=== PATIENT | male | born 1970 | race Caucasian/White ===

== ENCOUNTER 2018-02-13 13:01 | Inpatient (IN) | payer OTHER ==
[~2018-02-13] VITALS: Ht 190.5 cm; Wt 96.0 kg
[2018-02-13 14:03] LABS: BASOPHILS ABSOLUTE AUTO 0.04 K/mm3 (0.00-0.23); BASOPHILS PERCENT AUTO 0 % (0-2); EOSINOPHILS ABSOLUTE AUTO 0.02 K/mm3 (0.00-0.68); EOSINOPHILS PERCENT AUTO 0 % (0-6); Hematocrit 49.1 % (37.0-53.0); Hemoglobin 16.4 g/dL (13.5-17.5); IMMATURE GRAN ABSOLUTE AUTO 0.07 K/mm3 (0.00-0.10); IMMATURE GRAN PERCENT AUTO 1 % (0-1); LYMPHOCYTES ABSOLUTE AUTO 0.63 K/mm3 (0.84-5.20); LYMPHOCYTES PERCENT AUTO 4 % (21-46); MONOCYTES ABSOLUTE AUTO 0.95 K/mm3 (0.16-1.47); MONOCYTES PERCENT AUTO 6 % (4-13); Mean Corpuscular HGB 29.6 pg (26.0-34.0); Mean Corpuscular HGB Conc 33.4 g/dL (31.5-36.5); Mean Corpuscular Volume 89 fL (80-100); Mean Platelet Volume 9.8 fL (9.1-12.4); NEUTROPHILS ABSOLUTE AUTO 13.04 K/mm3 (1.96-9.15); NEUTROPHILS PERCENT AUTO 88 % (41-73); Platelet Count 358 K/mm3 (150-400); RDW Standard Deviation 42.5 fL (35.1-46.3); Red Blood Cell Count 5.54 M/mm3 (4.30-5.90); White Blood Cell Count 14.75 K/mm3 (4.00-11.30)
[2018-02-13 14:18] LABS: Source, Urine Clean Catch
[2018-02-13 14:22] LABS: Alanine Aminotransfer (ALT/SGP 19 U/L (12-78); Albumin, Blood 3.8 g/dL (3.4-5.0); Albumin/Globulin Ratio 0.9 (0.8-1.8); Alk Phos 68 U/L (50-136); Anion Gap 10 mmol/L (6-16); Aspartate Aminotrans (AST/SGOT 15 U/L (12-37); Bilirubin, Total 0.6 mg/dL (0.1-1.0); Blood Urea Nitrogen 9 mg/dL (8-24); Bun/Creatinine Ratio 10.2 (12.0-20.0); CO2, Blood 25 mmol/L (21-32); Calcium, Blood 8.9 mg/dL (8.5-10.1); Chloride, Blood 105 mmol/L (98-108); Creatinine, Blood 0.88 mg/dL (0.60-1.20); Globulin, Blood 4.2 g/dL (2.2-4.0); Glomerular Filtration Rate >60 (60-); Glucose, Blood 116 mg/dL (70-99); Potassium, Blood 3.7 mmol/L (3.5-5.5); Sodium, Blood 140 mmol/L (136-145)
[2018-02-13 14:32] LABS: Appearance, Urine Clear (Clear); Bilirubin, Urine Neg (Neg); Blood, Urine 5+ (Neg); Color, Urine Yellow (P-Yellow); Glucose Qualitative, Urine Neg (Neg); Ketones, Urine 1+ (Neg); Leukocyte Esterase, Urine 1+ (Neg); Nitrite, Urine Neg (Neg); Protein, Urine 1+ (Neg); Specific Gravity, Urine 1.025 (1.003-1.022); Urobilinogen, Urine NORM (Normal)
[2018-02-13 15:06] LABS: Bacteria Few /hpf; Mucus Mod (0-Heavy); Squamous Epithelial Cells Rare /hpf (Few); White Blood Cells, Urine Not Seen /hpf (0-5)
[2018-02-14 03:30] LABS: Adenovirus F 40/41 Not Detected (NOT DETECT); Astrovirus Not Detected (NOT DETECT); Cryptosporidium Not Detected (NOT DETECT); Cyclospora Cayetanensis Not Detected (NOT DETECT); E. Coli O157 Not Detected (NOT DETECT); Entamoeba Histolytica Not Detected (NOT DETECT); Enteroaggregative E. coli-EAEC Not Detected (NOT DETECT); Enteropathogenic E. coli-EPEC Not Detected (NOT DETECT); Enterotoxigenic E. coli-ETEC Not Detected (NOT DETECT); Giardia Lamblia Not Detected (NOT DETECT); Norovirus GI/GII Not Detected (NOT DETECT); Plesiomonas Shigelloides Not Detected (NOT DETECT); Rotavirus A Not Detected (NOT DETECT); Salmonella Sp Not Detected (NOT DETECT); Sapovirus Not Detected (NOT DETECT); Shiga Toxin-prod E. coli-STEC Not Detected (NOT DETECT); Shigella/Enteroin E. coli-EIEC Not Detected (NOT DETECT); Vibrio Cholerae Not Detected (NOT DETECT); Vibrio Sp Not Detected (NOT DETECT); Yersinia Enterocolitica Not Detected (NOT DETECT)
[2018-02-14 04:52] LABS: Campylobacter Sp Detected (NOT DETECT)
[2018-02-14 05:37] LABS: Hemoglobin 14.3 g/dL (13.5-17.5); Mean Corpuscular HGB Conc 33.3 g/dL (31.5-36.5); Mean Corpuscular Volume 90 fL (80-100); Mean Platelet Volume 9.8 fL (9.1-12.4); Platelet Count 262 K/mm3 (150-400); RDW Standard Deviation 42.8 fL (35.1-46.3); Red Blood Cell Count 4.77 M/mm3 (4.30-5.90); White Blood Cell Count 11.35 K/mm3 (4.00-11.30)
[2018-02-14 05:59] LABS: Anion Gap 9 mmol/L (6-16); Blood Urea Nitrogen 6 mg/dL (8-24); Bun/Creatinine Ratio 6.9 (12.0-20.0); CO2, Blood 24 mmol/L (21-32); Calcium, Blood 8.4 mg/dL (8.5-10.1); Chloride, Blood 105 mmol/L (98-108); Creatinine, Blood 0.87 mg/dL (0.60-1.20); Glomerular Filtration Rate >60 (60-); Glucose, Blood 131 mg/dL (70-99); Potassium, Blood 3.5 mmol/L (3.5-5.5); Sodium, Blood 138 mmol/L (136-145)
[2018-02-15 05:41] LABS: BASOPHILS ABSOLUTE AUTO 0.02 K/mm3 (0.00-0.23); BASOPHILS PERCENT AUTO 0 % (0-2); EOSINOPHILS ABSOLUTE AUTO 0.19 K/mm3 (0.00-0.68); EOSINOPHILS PERCENT AUTO 3 % (0-6); Hematocrit 43.1 % (37.0-53.0); Hemoglobin 14.4 g/dL (13.5-17.5); IMMATURE GRAN ABSOLUTE AUTO 0.02 K/mm3 (0.00-0.10); IMMATURE GRAN PERCENT AUTO 0 % (0-1); LYMPHOCYTES ABSOLUTE AUTO 1.15 K/mm3 (0.84-5.20); LYMPHOCYTES PERCENT AUTO 17 % (21-46); MONOCYTES ABSOLUTE AUTO 0.94 K/mm3 (0.16-1.47); MONOCYTES PERCENT AUTO 14 % (4-13); Mean Corpuscular HGB 30.1 pg (26.0-34.0); Mean Corpuscular HGB Conc 33.4 g/dL (31.5-36.5); Mean Corpuscular Volume 90 fL (80-100); Mean Platelet Volume 9.9 fL (9.1-12.4); NEUTROPHILS ABSOLUTE AUTO 4.42 K/mm3 (1.96-9.15); NEUTROPHILS PERCENT AUTO 66 % (41-73); Platelet Count 259 K/mm3 (150-400); RDW Standard Deviation 42.8 fL (35.1-46.3); Red Blood Cell Count 4.78 M/mm3 (4.30-5.90); White Blood Cell Count 6.74 K/mm3 (4.00-11.30)
[2018-02-15 05:56] LABS: Anion Gap 7 mmol/L (6-16); Blood Urea Nitrogen 4 mg/dL (8-24); CO2, Blood 28 mmol/L (21-32); Calcium, Blood 8.5 mg/dL (8.5-10.1); Chloride, Blood 106 mmol/L (98-108); Creatinine, Blood 0.79 mg/dL (0.60-1.20); Glomerular Filtration Rate >60 (60-); Glucose, Blood 100 mg/dL (70-99); Potassium, Blood 3.8 mmol/L (3.5-5.5); Sodium, Blood 141 mmol/L (136-145)
[2018-02-15] MEDS ORDERED: AZIT500 PO (10:47)
[2018-02-15] MEDS ORDERED: Percocet 5-3251 EACH PO (10:47)
[2018-02-15] MEDS ORDERED: ONDA4ODT PO (10:48)
== END 2018-02-15 10:57 | disposition home or self-care (01) | DRG 373 ==
LOC: ER 13:01 → MEDS 13:02
PROVIDERS: Emergency Medicine; Internal Medicine
DX: A05.8 Other specified bacterial foodborne intoxications (principal); K40.90 Unilateral inguinal hernia, without obstruction or gangrene, not specified as recurrent; Z87.891 Personal history of nicotine dependence; K52.9 Noninfective gastroenteritis and colitis, unspecified; K76.9 Liver disease, unspecified; N43.3 Hydrocele, unspecified
CPT/HCPCS: 36415; 74177; 76870; 80048; 80053; 81001; 83690; 85025; 85027; 85651; 86140; 87507; 96361; 96365; 96367; 96375; 96376; 99285-25; G0378; J0456; J0744; J1650; J2405; J3010; J7030; J7050; J7120; Q9967

== ENCOUNTER 2019-03-20 08:41 | Emergency (ER) | payer OTHER ==
[~2019-03-20] VITALS: Ht 190.5 cm; Wt 86.2 kg
[~2019-03-20 08:41] MED LIST: AZIT500 PO; ONDA4ODT PO; Percocet 5-3251 EACH PO
[2019-03-20] MEDS ORDERED: Bactrim Ds Tab1 EACH PO (09:06)
[2019-03-20] MEDS ORDERED: IBUP800 PO (09:06)
[2019-03-20] MEDS ORDERED: Percocet 5-3251 EACH PO (09:06)
[2019-03-20] MEDS ORDERED: Keflex500 MG PO (09:06)
== END 2019-03-20 09:14 | disposition home or self-care (01) ==
LOC: ER 08:41
DX: L03.211 Cellulitis of face (principal)
CPT/HCPCS: 99283

== ENCOUNTER → 2019-06-18 | Outpatient (CLI) | payer OTHER ==
[~2019-06-18] MED LIST changes: +Bactrim Ds Tab1 EACH PO; +IBUP800 PO; +Keflex500 MG PO
== END ==
LOC: LAB 18:07 → LAB SHORT 18:07
DX: L08.9 Local infection of the skin and subcutaneous tissue, unspecified (principal); L02.01 Cutaneous abscess of face
CPT/HCPCS: 87070; 87075; 87077; 87147; 87186; 87205

== ENCOUNTER → 2021-10-05 | Outpatient (CLI) | payer OTHER | END | disposition home or self-care (01) | LOC: LAB 14:30 → LAB SHORT 14:30 | DX: L03.116 Cellulitis of left lower limb (principal) | CPT/HCPCS: 87070; 87075; 87147; 87205 ==

== ENCOUNTER 2023-04-20 18:17 | Inpatient (IN) | payer OTHER ==
[~2023-04-20] VITALS: Ht 193 cm; Wt 70.0 kg
[2023-04-20 19:30] LABS: BASOPHILS ABSOLUTE AUTO 0.13 K/mm3 (0.00-0.23); BASOPHILS PERCENT AUTO 1 % (0-2); EOSINOPHILS ABSOLUTE AUTO 0.14 K/mm3 (0.00-0.68); EOSINOPHILS PERCENT AUTO 1 % (0-6); Hemoglobin 14.6 g/dL (13.5-17.5); IMMATURE GRAN ABSOLUTE AUTO 0.23 K/mm3 (0.00-0.10); IMMATURE GRAN PERCENT AUTO 1 % (0-1); LYMPHOCYTES ABSOLUTE AUTO 0.38 K/mm3 (0.84-5.20); LYMPHOCYTES PERCENT AUTO 2 % (21-46); MONOCYTES ABSOLUTE AUTO 0.48 K/mm3 (0.16-1.47); MONOCYTES PERCENT AUTO 3 % (4-13); Mean Corpuscular HGB 27.6 pg (26.0-34.0); Mean Corpuscular Volume 81 fL (80-100); Mean Platelet Volume 11.2 fL (9.1-12.4); NEUTROPHILS ABSOLUTE AUTO 14.88 K/mm3 (1.96-9.15); NEUTROPHILS PERCENT AUTO 92 % (41-73); Platelet Count 257 K/mm3 (150-400); RDW Coefficient Variation 13.4 % (11.7-14.2); Red Blood Cell Count 5.29 M/mm3 (4.30-5.90); White Blood Cell Count 16.24 K/mm3 (4.00-11.30)
[2023-04-20 19:38] LABS: Influenza A, PCR NEGATIVE (NEGATIVE); Influenza B, PCR NEGATIVE (NEGATIVE); Resp Syncytial Virus, PCR NEGATIVE (NEGATIVE); SARS-Cov-2 (COVID-19) PCR, MMC NEGATIVE (NEGATIVE)
[2023-04-20 19:39] LABS: Albumin, Blood 2.8 g/dL (3.4-5.0); Albumin/Globulin Ratio 0.5 (0.8-1.8); Bilirubin, Total 0.9 mg/dL (0.1-1.0); Bun/Creatinine Ratio 21.4 (12.0-20.0); Calcium, Blood 9.6 mg/dL (8.5-10.1); Creatinine, Blood 0.89 mg/dL (0.60-1.20); Globulin, Blood 5.4 g/dL (2.2-4.0); Total Protein, Blood 8.2 g/dL (6.4-8.2)
[2023-04-20 21:10] LABS: Base Excess Venous 5.8 mmol/L; Bicarbonate Venous 27.9 mmol/L (24.0-30.0); PCO2 Venous 48.1 mmHg (38-42); pH Blood Venous 7.41 (7.34-7.37)
[2023-04-20 22:10] LABS: U Cannabinoids Screen DETECTED
[2023-04-20 22:11] LABS: U Amphetamine Screen DETECTED; U Barbituate Screen Not Detected; U Benzodiazapine Screen Not Detected; U Buprenorphine Screen Not Detected; U Cocaine Screen Not Detected; U Methadone Screen Not Detected; U Methamphetamine Screen DETECTED; U Opiates Screen Not Detected; U Oxycodone Screen Not Detected; U Phencyclidine Screen Not Detected; U Propoxyphene Screen Not Detected
[2023-04-21 00:15] VITALS: BP 147/100
--- NOTE | 2023-04-21 00:39 | NUR ---
ADMISSION PATIENT ARRIVED TO PCU 17 VIA STRETCHER, WAS ABLE TO AMBULATE TO THE BED WITH MINIMAL ASSISTANCE. PATIENT IS TACHYPNIC AND REPORTS CHEST DISCOMFORT. ALERT AND ORIENTED X4, WITHDRAWN. ON 2 LITERS O2 VIA NC. VITAL SIGNS STABLE. WILL CONTINUE TO MONITOR.
--- NOTE | 2023-04-21 01:09 | NUR ---
PHYSICIAN COMMUNICATION PATIENT HAS STARTED TO ACTIVELY VOMIT, ZOFRAN NOT AVAILABLE TO GIVE AT THIS TIME. CALLED DR BRAVO TO NOTIFY HIM OF THIS, HE ORDERED 10 MG IV REGLAN Q6 HOURS NEEDED.
[2023-04-21 03:31] VITALS: BP 160/96
[2023-04-21 04:00] VITALS: BP 142/89
[2023-04-21 04:26] LABS: BASOPHILS ABSOLUTE AUTO 0.08 K/mm3 (0.00-0.23); BASOPHILS PERCENT AUTO 1 % (0-2); EOSINOPHILS ABSOLUTE AUTO 0.02 K/mm3 (0.00-0.68); EOSINOPHILS PERCENT AUTO 0 % (0-6); Hematocrit 39.1 % (37.0-53.0); Hemoglobin 13.2 g/dL (13.5-17.5); IMMATURE GRAN ABSOLUTE AUTO 0.05 K/mm3 (0.00-0.10); IMMATURE GRAN PERCENT AUTO 0 % (0-1); LYMPHOCYTES ABSOLUTE AUTO 0.34 K/mm3 (0.84-5.20); LYMPHOCYTES PERCENT AUTO 3 % (21-46); MONOCYTES ABSOLUTE AUTO 0.48 K/mm3 (0.16-1.47); MONOCYTES PERCENT AUTO 4 % (4-13); Mean Corpuscular HGB 27.7 pg (26.0-34.0); Mean Corpuscular HGB Conc 33.8 g/dL (31.5-36.5); Mean Corpuscular Volume 82 fL (80-100); NEUTROPHILS ABSOLUTE AUTO 12.06 K/mm3 (1.96-9.15); NEUTROPHILS PERCENT AUTO 93 % (41-73); Platelet Count 160 K/mm3 (150-400); RDW Coefficient Variation 13.4 % (11.7-14.2); RDW Standard Deviation 40.2 fL (35.1-46.3); Red Blood Cell Count 4.77 M/mm3 (4.30-5.90); White Blood Cell Count 13.03 K/mm3 (4.00-11.30)
[2023-04-21 04:52] LABS: Magnesium, Blood 2.3 mg/dL (1.6-2.4)
[2023-04-21 05:01] LABS: Albumin, Blood 2.3 g/dL (3.4-5.0); Albumin/Globulin Ratio 0.5 (0.8-1.8); Bilirubin, Total 0.7 mg/dL (0.1-1.0); Calcium, Blood 8.7 mg/dL (8.5-10.1); Creatinine, Blood 0.72 mg/dL (0.60-1.20); Globulin, Blood 4.8 g/dL (2.2-4.0); Potassium, Blood 3.3 mmol/L (3.5-5.5); Total Protein, Blood 7.1 g/dL (6.4-8.2)
--- NOTE | 2023-04-21 06:43 | NUR ---
SHIFT SUMMARY PATIENT HAD TWO EPISODES OF VOMITING OVERNIGHT TOTALING 850 ML OF EMESIS, MEDICATED PER EMAR FOR NAUSEA. PATIENT ALSO MEDICATED PER EMAR FOR STOMACH AND RIB PAIN. OCCASIONAL HALUCINATING NOTED. PATIENT ON ROOM AIR SATING MID 90'S, CONTINUES TO BE TACHYPNIC. VITAL SIGNS STABLE, SINUS RHYTHM ON TELE. WILL CONTINUE TO MONITOR. CALL LIGHT WITHIN REACH.
[2023-04-21 07:55] VITALS: BP 167/104
--- NOTE | 2023-04-21 07:55 | NUR ---
AM ASSESSMENT: Pt appears to be sleeping soundly. Difficult to wake, but once awake Pt oriented x4. LS diminished on the R. BT positive. HR sounds irregular rhythm during auscultation, tele shows NSR with PAC's. Pulses palp. Low grade temp. Will monitor and treat per orders. BP elevated. Physician in room and order for hydralazine x1. Will medicate per orders. Other VSS. Call light in reach. Will continue to monitor.
[2023-04-21 10:59] VITALS: BP 132/97
[2023-04-21 15:06] VITALS: BP 139/79
--- NOTE | 2023-04-21 16:10 | NUR ---
UPDATE: Pt had VS taken at 1510. IV was saline locked at that time. Pt requested to go outside. Informed patient that he could walk around the unit with a staff member but not go outside. Pt verbalized understanding. Told him this RN had to go get vital signs on 2 more patients but that myself or the aid would be back to take him for a walk. At 1600 when this RN went back to room to take patient for a walk patient was not in room and belongings bags were gone. This RN, Magdalene RN, Jsoe PCT and Mary PCT split up the hospital and looked for paitent on all open units and around the outside of the hospital. Patient was not found. OVer head magdalene for patient to return to room. Will wait an hour since time patient was noted to not be in room and will then discharge patient AMA. Physician notified.
--- NOTE | 2023-04-21 17:55 | NUR ---
DISCHARGE NOTE; Security was able to find picture of patient walking out back stairwell with belongings at 1515. Pt then crossed street off of campus. Pt discharged out of the system at 1700 after not returning. Pt had two IV's and no evidence was found of IV's being removed by patient in room. Physian notified.
== END 2023-04-21 16:00 | disposition left against medical advice (07) | DRG 871 ==
LOC: ER 18:17 → PCU 23:41
PROVIDERS: Nurse Practitioner Acute Care; Student in an Organized Health Care Education/Training Program; ADMIT Internal Medicine
DX: A41.9 Sepsis, unspecified organism (principal); J18.9 Pneumonia, unspecified organism; J96.01 Acute respiratory failure with hypoxia; E87.1 Hypo-osmolality and hyponatremia; E87.20 Acidosis, unspecified; K40.90 Unilateral inguinal hernia, without obstruction or gangrene, not specified as recurrent; R65.20 Severe sepsis without septic shock; F12.90 Cannabis use, unspecified, uncomplicated; R03.0 Elevated blood-pressure reading, without diagnosis of hypertension; Z79.899 Other long term (current) drug therapy; Z79.891 Long term (current) use of opiate analgesic; Z53.29 Procedure and treatment not carried out because of patient's decision for other reasons; Z98.890 Other specified postprocedural states; Z11.52 Encounter for screening for COVID-19
CPT/HCPCS: 0241U; 36415; 71046; 71260; 80053; 82803; 83605; 83735; 84145; 84484; 85025; 87040; 87070; 87205; 87449; 93005; 93010; 96361; 96365-59; 96367; 96375-59; 99285-25; A9270; J0360; J0456; J0696; J1650; J1885; J2405; J2765; J3010; J7030; J7050; Q2036; Q9967

== ENCOUNTER → 2023-12-03 | Outpatient (CLI) | payer OTHER | LOC: LAB SHORT 10:10 → LAB 10:10 | DX: L02.416 Cutaneous abscess of left lower limb (principal) | CPT/HCPCS: 87070; 87075; 87077; 87147; 87186; 87205 ==

== ENCOUNTER → 2024-07-27 | Outpatient (CLI) | payer OTHER | END | disposition home or self-care (01) | LOC: LAB SHORT 12:00 → LAB 12:00 | DX: L03.114 Cellulitis of left upper limb (principal) | CPT/HCPCS: 87070; 87075; 87077; 87147; 87186; 87205 ==

== ENCOUNTER 2024-09-25 13:06 | Emergency (ER) | payer OTHER ==
[~2024-09-25] VITALS: Ht 190.5 cm; Wt 99.8 kg
[2024-09-25 13:26] VITALS: BP 140/82
[2024-09-25] MEDS ORDERED: Methadone HCL 10 MG TAB PO ONE (13:50)
== END 2024-09-25 14:17 | disposition home or self-care (01) ==
LOC: ER 13:06
DX: Z76.89 Persons encountering health services in other specified circumstances (principal); F11.21 Opioid dependence, in remission
CPT/HCPCS: 99281; A9270

== ENCOUNTER 2025-02-14 11:24 | Emergency (ER) | payer OTHER ==
[~2025-02-14] VITALS: Ht 193 cm; Wt 90.7 kg
[2025-02-14 11:48] VITALS: BP 149/80
== END 2025-02-14 12:17 | disposition home or self-care (01) ==
LOC: ER 11:24
DX: F11.10 Opioid abuse, uncomplicated (principal); Z76.0 Encounter for issue of repeat prescription
CPT/HCPCS: 99281; A9270

== ENCOUNTER 2025-04-05 17:33 | Emergency (ER) | payer OTHER ==
[~2025-04-05] VITALS: Ht 190.5 cm; Wt 90.7 kg
[2025-04-05 17:57] VITALS: BP 121/71
== END 2025-04-05 19:23 | disposition home or self-care (01) ==
LOC: ER 17:33
DX: F11.20 Opioid dependence, uncomplicated (principal); Z76.0 Encounter for issue of repeat prescription
CPT/HCPCS: 99281; A9270

== ENCOUNTER 2025-04-20 11:35 | Emergency (ER) | payer OTHER ==
[~2025-04-20] VITALS: Ht 190.5 cm; Wt 90.7 kg
[2025-04-20 12:32] VITALS: BP 154/93
== END 2025-04-20 12:38 | disposition home or self-care (01) ==
LOC: ER 11:35
DX: Z76.89 Persons encountering health services in other specified circumstances (principal); F19.90 Other psychoactive substance use, unspecified, uncomplicated
CPT/HCPCS: 99281; A9270

== ENCOUNTER 2025-04-21 10:12 | Emergency (ER) | payer OTHER ==
[~2025-04-21] VITALS: Ht 190.5 cm; Wt 90.7 kg
[2025-04-21 10:26] VITALS: BP 134/63
== END 2025-04-21 11:01 | disposition home or self-care (01) ==
LOC: ER 10:12
DX: F11.90 Opioid use, unspecified, uncomplicated (principal); Z51.81 Encounter for therapeutic drug level monitoring
CPT/HCPCS: 99281; A9270

== ENCOUNTER 2025-05-13 13:57 | Emergency (ER) | payer OTHER ==
[~2025-05-13] VITALS: Ht 190.5 cm; Wt 99.8 kg
[2025-05-13 14:23] VITALS: BP 122/101
== END 2025-05-13 14:30 | disposition home or self-care (01) ==
LOC: ER 13:57
DX: Z76.89 Persons encountering health services in other specified circumstances (principal)
CPT/HCPCS: 99281; A9270